=== PATIENT | female | born 1975 | race Caucasian/White ===

== ENCOUNTER 2017-10-14 10:00 | Day surgery (SDC) | payer MEDICAID ==
[~2017-10-14] VITALS: Ht 170.2 cm; Wt 121.6 kg
[~2017-10-14 10:00] MED LIST: SODIUM CHLORIDE 0.9% 1000ML 1,000 ML IV ONE
[2017-10-14 10:19] VITALS: BP 128/95
[2017-10-14 11:10] VITALS: BP 139/92
[2017-10-14] MEDS ORDERED: DICY20TA11 PO (11:27)
[2017-10-14] MEDS ORDERED: ESOM40CA PO (11:27)
[2017-10-14] MEDS ORDERED: IBUP-2077 PO (11:27)
[2017-10-14] MEDS ORDERED: LURA80TA PO (11:27)
[2017-10-14] MEDS ORDERED: BUTA-256 PO (11:27)
[2017-10-14] MEDS ORDERED: CLON0.1T PO (11:27)
[2017-10-14] MEDS ORDERED: PREG75 PO (11:27)
[2017-10-14] MEDS ORDERED: ALPR-412 PO (11:27)
[2017-10-14] MEDS ORDERED: SERT100T12 PO (11:27)
[2017-10-14] MEDS ORDERED: HYDR-4068 PO (11:27)
[2017-10-14] MEDS ORDERED: CYCL10TA7 PO (11:27)
[2017-10-14] MEDS ORDERED: MONT10TA24 PO (11:27)
[2017-10-14] MEDS ORDERED: ONDA4TAB4 PO (11:27)
[2017-10-14] MEDS ORDERED: CETRIZINE PO (11:27)
[2017-10-14] MEDS ORDERED: PROAIR IH (11:30)
[2017-10-14] MEDS ORDERED: QVAR IH (11:30)
[2017-10-14] MEDS ORDERED: HYDR25TA PO (11:30)
[2017-10-14] MEDS ORDERED: AMLO5TAB2 PO (11:30)
== END 2017-10-14 11:45 | disposition home or self-care (01) ==
LOC: DAH 10:00 → ENDO 10:00
PROVIDERS: ATTEND Internal Medicine
DX: K29.60 Other gastritis without bleeding (principal); I10 Essential (primary) hypertension; K76.0 Fatty (change of) liver, not elsewhere classified; K21.9 Gastro-esophageal reflux disease without esophagitis; F41.9 Anxiety disorder, unspecified; F31.9 Bipolar disorder, unspecified; M79.7 Fibromyalgia; M19.90 Unspecified osteoarthritis, unspecified site; Z86.73 Personal history of transient ischemic attack (TIA), and cerebral infarction without residual deficits; Z90.710 Acquired absence of both cervix and uterus; Z90.49 Acquired absence of other specified parts of digestive tract; Z98.890 Other specified postprocedural states; Z68.42 Body mass index [BMI] 45.0-49.9, adult; E66.9 Obesity, unspecified; Z79.899 Other long term (current) drug therapy; Z88.8 Allergy status to other drugs, medicaments and biological substances; Z88.0 Allergy status to penicillin
CPT/HCPCS: 43239; 82948; 88305; 88312; A4606; J7030